=== PATIENT | male | born 1990 | race Caucasian/White ===

== ENCOUNTER 2019-03-17 06:36 | Emergency (ER) | payer OTHER, SELFPAY ==
[2019-03-17] MEDS ORDERED: NA CHLORIDE 0.9% 1,000 ML ONE (07:15)
[2019-03-17] MEDS ORDERED: KETOROLAC 30 MG/ML INJ ONE (07:15)
[2019-03-17] MEDS ORDERED: ONDANSETRON 4 MG/2 ML VIAL ONE ×2 (07:15→08:08)
[2019-03-17 07:32] LABS: Absolute Lymphocytes (CBC) 1.6 K/uL (0.7-4.9); Absolute Monocytes 0.5 K/uL (0.1-1.3); Absolute Neutrophil 8.9 K/uL (1.8-8.0); Basophils % 0.4 % (0-1.3); Eosinophils % 1.1 % (0-4.4); Hematocrit 42.1 % (39.6-49.0); Lymphocytes % 14.3 % (15.3-44.8); Monocytes % 4.4 % (3.3-12.3); RBC Red Blood Cell Count 4.54 M/uL (4.33-5.43)
[2019-03-17 07:50] LABS: ALT/SGPT 27 U/L (12-78); AST/SGOT 20 U/L (15-37); Albumin 4.4 g/dL (3.4-5.0); Alkaline Phosphatase 51 U/L (45-117); BUN Blood Urea Nitrogen 9 mg/dL (7-18); Bicarbonate 25 mmol/L (21-32); Bilirubin Direct 0.1 mg/dL (0-0.2); Bilirubin Total 0.5 mg/dL (0.2-1.0); Glucose Level 130 mg/dL (74-106); Lipase 235 U/L (73-393); Potassium 3.7 mmol/L (3.5-5.1); Protein, Total 7.5 g/dL (6.4-8.2); Sodium Level 144 mmol/L (136-145)
[2019-03-17] MEDS ORDERED: MORPHINE 2 MG/ML SYR ONE ×2 (08:08→10:57)
[2019-03-17 08:37] LABS: Calcium Oxalate Crystals- Ur MODERATE (NONE SEEN); Urine Bacteria NONE SEEN /HPF (NONE SEEN); Urine Culture Reflex Order NOT NEEDED; Urine Mucus LIGHT /HPF (NONE SEEN); Urine RBC >50 /HPF (NONE SEEN)
--- NOTE | 2019-03-17 10:49 | RAD REPORT ---
EXAM DESCRIPTION: CT - Abdomen Pelvis W Contrast - 03/17/2019 10:25 am CLINICAL HISTORY: Abdominal pain. Vomiting are COMPARISON: 2010 TECHNIQUE: Computed axial tomography of the abdomen and pelvis was obtained. 100 cc Isovue-300 is ad ministered intravenously. Oral contrast was given. All CT scans are performed using dose optimization technique as appropriate and may include automated exposure control or mA/KV adjustment according to patient size. FINDINGS: The liver, spleen, pancreas, adrenals and left kidney appear unremarkable. Right renal calculi. The l argest measures 10 millimeters Hounsfield unit 978. No hydronephrosis The appendix is not clearly seen. There is no evidence of diverticulitis IMPRESSION: Nonobstructing right renal calculi
[2019-03-17 11:11] LABS: Urine Blood 2+ (NEG); Urine Glucose NEGATIVE (NEG); Urine Protein TRACE (NEG); Urine Specific Gravity 1.015 (1.005-1.030); Urine pH 8.5 (5.0-7.0)
[2019-03-17] MEDS ORDERED: DICYCLOMINE HCL 10 MG CAP ONE (11:38)
--- NOTE | 2019-03-17 12:05 | EDPHYS ---
Physician Documentation [facility] Name: Lucas Macario Age: 28 yrs Sex: Male : 1990 Arrival Date: 03/17/2019 Time: 06:39 Bed 17 Private MD: ED Physician Gerry Hernandez HPI: 03/17 06:53 This 28 yrs old Male presents to ER via Ambulatory with complaints of cp Abdominal Pain, Vomiting. 06:53 The patient presents with abdominal pain mid abdomen. cp 06:53 Onset: The symptoms/episode began/occurred yesterday. The symptoms do not radiate. cp Associated signs and symptoms: Pertinent positives: nausea and vomiting, diarrhea yesterday, Pertinent negatives: blood in stools, constipation, dysuria, fever, shortness of breath, testicular pain. The symptoms are described as constant. Modifying factors: the symptoms are aggravated by pressure. Severity of pain: in the emergency department the pain is actually worse. Historical: - Allergies: 06:52 No Known Allergies; bb - Home Meds: 06:52 None [Active]; bb - PMHx: 06:52 Kidney stones; bb - PSHx: 06:52 right hand; bb - Immunization history:: Adult Immunizations up to date. - Social history:: Smoking status: Patient uses tobacco products, smokes one pack cigarettes per day. Patient/guardian denies using alcohol, street drugs. - Ebola Screening: : No symptoms or risks identified at this time. ROS: 06:54 Eyes: Negative for injury, pain, redness, and discharge. cp 06:54 Constitutional: Negative for body aches, chills, fever, poor PO intake. 06:54 ENT: Negative for drainage from ear(s), ear pain, sore throat, difficulty swallowing, difficulty handling secretions. 06:54 Cardiovascular: Negative for chest pain. 06:54 Respiratory: Negative for cough, shortness of breath, wheezing. 06:54 Abdomen/GI: Positive for abdominal pain, nausea and vomiting, diarrhea, Negative for constipation, black/tarry stool, rectal bleeding. 06:54 : Negative for urinary symptoms, testicular pain 06:54 Neuro: Negative for altered mental status, headache. 06:54 All other systems are negative. Exam: 07:00 Constitutional: The patient appears in no acute distress, alert, awake, non-toxic, well cp developed, well nourished. 07:00 Head/Face: Normocephalic, atraumatic. cp 07:00 Eyes: Periorbital structures: appear normal, Conjunctiva: normal, no exudate, no injection, Sclera: no appreciated abnormality, Lids and lashes: appear normal, bilaterally. 07:00 ENT: External ear(s): are unremarkable, Nose: is normal, Mouth: Lips: moist, Oral mucosa: pink and intact, moist, Posterior pharynx: is normal, airway is patent, no erythema, no exudate. 07:00 Chest/axilla: Inspection: normal, Palpation: is normal, no crepitus, no tenderness. 07:00 Cardiovascular: Rate: bradycardic, Rhythm: regular. 07:00 Respiratory: the patient does not display signs of respiratory distress, Respirations: normal, no use of accessory muscles, no retractions, no splinting, no tachypnea, labored breathing, is not present, Breath sounds: are clear throughout, no decreased breath sounds, no stridor, no wheezing. 07:00 Abdomen/GI: Inspection: abdomen appears normal, Bowel sounds: active, all quadrants, Palpation: soft, in all quadrants, moderate abdominal tenderness, in the right lower quadrant, rebound tenderness, is not appreciated, involuntary guarding, is not appreciated. 07:00 Back: pain, is absent, ROM is normal. 07:00 Skin: no rash present. Vital Signs: 06:52 BP 125 / 80; Pulse 58; Resp 16 S; Temp 98.1(O); Pulse Ox 100% on R/A; Weight 58.97 kg bb (R); Height 5 ft. 8 in. (172.72 cm) (R); Pain 6/10; 07:31 BP 128 / 81; Pulse 52; Resp 18; Pulse Ox 100% on R/A; em 08:27 BP 124 / 82; Pulse 51; Resp 18; Pulse Ox 97% on R/A; Pain 2/10; em 09:30 BP 117 / 75; Pulse 53; Resp 18; Pulse Ox 99% on R/A; Pain 4/10; em 10:30 BP 124 / 86; Pulse 63; Resp 18; Pulse Ox 99% on R/A; Pain 5/10; em 11:30 BP 122 / 87; Pulse 49; Resp 16; Pulse Ox 99% on R/A; em 06:52 Body Mass Index 19.77 (58.97 kg, 172.72 cm) bb MDM: 06:45 Patient medically screened. cp 07:00 Differential diagnosis: appendicitis, bowel obstruction, Testicular Torsion, cp Ureterolithiasis, urinary tract infection. 11:46 Physician consultation: Sylvain Hull MD was called at 11:46, awaiting call back. cp 12:03 Data reviewed: vital signs, nurses notes, lab test result(s), radiologic studies, CT cp scan. 12:03 Response to treatment: the patient's symptoms have markedly improved after treatment, cp and as a result, I will discharge patient. Physician consultation: Sylvain Hull MD was contacted at 12:00, regarding patient's condition, outpatient follow-up, tomorrow, wants patient to f/u with urology for hematuria. 03/17 06:54 Order name: Basic Metabolic Panel; Complete Time: 09:04 cp 03/17 09:05 Interpretation: Normal except: CL 108; GLUC 130. cp 03/17 06:54 Order name: CBC with Diff; Complete Time: 07:50 cp 03/17 09:05 Interpretation: Normal except: WBC 11.1; MPV 7.0; GERMÁN% 79.8; LYM% 14.3; NEUT A 8.9. cp 03/17 06:54 Order name: Creatinine for Radiology; Complete Time: 07:50 cp 03/17 06:54 Order name: Hepatic Function; Complete Time: 09:04 cp 03/17 06:54 Order name: Lipase; Complete Time: 09:04 cp 03/17 06:54 Order name: Urine Microscopic Only; Complete Time: 09:04 cp 03/17 07:24 Order name: CT Abd/Pelvis - W/Contrast: give po contrast; Complete Time: 10:51 cp 03/17 10:41 Order name: Urine Dipstick--Ancillary (enter results); Complete Time: 11:18 mw2 03/17 06:54 Order name: IV Saline Lock; Complete Time: 07:54 cp 03/17 06:54 Order name: Labs collected and sent; Complete Time: 07:54 cp 03/17 06:54 Order name: Urine Dipstick-Ancillary (obtain specimen); Complete Time: 08:29 cp 03/17 11:23 Order name: PO challenge; Complete Time: 11:34 cp Administered Medications: 07:19 Drug: NS 0.9% 1000 ml Route: IV; Rate: 1 bolus; Site: right forearm; hb 08:26 Follow up: IV Status: Completed infusion; IV Intake: 1000ml em 07:20 Drug: Zofran 4 mg Route: IVP; Site: right forearm; hb 07:53 Follow up: Response: No adverse reaction; Nausea unchanged em 07:20 Drug: TORadol - Ketorolac 15 mg Route: IVP; Site: right forearm; hb 07:54 Follow up: Response: No adverse reaction; Pain is unchanged, physician notified em 08:01 Drug: Zofran 4 mg Route: IVP; Site: right forearm; em 08:27 Follow up: Response: No adverse reaction; Nausea is decreased em 08:09 Drug: morphine 2 mg Route: IVP; Site: right forearm; hb 08:27 Follow up: Response: No adverse reaction; Pain is decreased em 10:52 Drug: morphine 2 mg Route: IVP; Site: right forearm; em 11:24 Follow up: Response: No adverse reaction em 11:34 Drug: Bentyl 20 mg Route: PO; em 12:17 Follow up: Response: No adverse reaction em Disposition: 03/18 08:02 Co-signature as Attending Physician, Gerry Hernandez MD I agree with the assessment and sujey plan of care. Disposition: 03/17/19 12:04 Discharged to Home. Impression: Hematuria, Diarrhea, unspecified, Nausea and vomiting, Lower abdominal pain, unspecified, Calculus of kidney - right. - Condition is Stable. - Discharge Instructions: Abdominal Pain, Adult, Diarrhea, Adult, Hematuria, Adult, Nausea and Vomiting, Adult. - Prescriptions for Bentyl 20 mg Oral Tablet - take 1 tablet by ORAL route every 6 hours As needed; 20 tablet. Zofran 4 mg Oral Tablet - take 1 tablet by ORAL route every 12 hours As needed; 20 tablet. Cipro 500 mg Oral Tablet - take 1 tablet by ORAL route every 12 hours for 7 days; 14 tablet. Metronidazole 500 mg Oral Tablet - take 1 tablet by ORAL route every 8 hours for 7 days; 21 tablet. - Medication Reconciliation Form, Thank You Letter, Antibiotic Education, Prescription Opioid Use form. - Follow up: Sylvain Hull MD; When: Tomorrow; Reason: Recheck today's complaints. Follow up: Krysta Garcia MD; When: 1 - 2 days; Reason: hematuria. - Problem is new. - Symptoms have improved. Signatures: Dispatcher [employer] Gerry Nails MD MD cha Munoz, Edgar, DYER HELPER DYER HELPER em Hali Mckenna RN RN bb Gerry Carroll, PA PA Jamila Galvan RN RN Corrections: (The following items were deleted from the chart) 03/17 12:06 12:04 03/17/2019 12:04 Discharged to Home. Impression: Hematuria; Diarrhea, cp unspecified; Nausea and vomiting; Lower abdominal pain, unspecified. Condition is Stable. Forms are Medication Reconciliation Form, Thank You Letter, Antibiotic Education, Prescription Opioid Use. Follow up: Dr. Sylvain Hull; When: Tomorrow; Reason: Recheck today's complaints. Follow up: Krysta Garcia; When: 1 - 2 days; Reason: hematuria. Problem is new. Symptoms have improved. cp 12:19 12:06 03/17/2019 12:04 Discharged to Home. Impression: Hematuria; Diarrhea, em unspecified; Nausea and vomiting; Lower abdominal pain, unspecified; Calculus of kidney - right. Condition is Stable. Discharge Instructions: Abdominal Pain, Adult, Diarrhea, Adult, Hematuria, Adult, Nausea and Vomiting, Adult. Prescriptions for Bentyl 20 mg Oral Tablet - take 1 tablet by ORAL route every 6 hours As needed; 20 tablet, Zofran 4 mg Oral Tablet - take 1 tablet by ORAL route every 12 hours As needed; 20 tablet, Cipro 500 mg Oral Tablet - take 1 tablet by ORAL route every 12 hours for 7 days; 14 tablet, Metronidazole 500 mg Oral Tablet - take 1 tablet by ORAL route every 8 hours for 7 days; 21 tablet. and Forms are Medication Reconciliation Form, Thank You Letter, Antibiotic Education, Prescription Opioid Use. Follow up: Dr. Sylvain Hull; When: Tomorrow; Reason: Recheck today's complaints. Follow up: Krysta Garcia; When: 1 - 2 days; Reason: hematuria. Problem is new. Symptoms have improved. cp
--- NOTE | 2019-03-17 12:05 | ER ---
Nurse's Notes [facility] Name: Lucas Macario Age: 28 yrs Sex: Male : 1990 Arrival Date: 03/17/2019 Time: 06:39 Bed 17 Private MD: Diagnosis: Hematuria;Diarrhea, unspecified;Nausea and vomiting;Lower abdominal pain, unspecified;Calculus of kidney-right Presentation: 03/17 06:51 Presenting complaint: Patient states: he has had nausea, vomiting, diarrhea with bb abdominal pain since yesterday. Transition of care: patient was not received from another setting of care. Onset of symptoms was March 16, 2019. Risk Assessment: Do you want to hurt yourself or someone else? Patient reports no desire to harm self or others. Initial Sepsis Screen: Does the patient meet any 2 criteria? No. Patient's initial sepsis screen is negative. Does the patient have a suspected source of infection? No. Patient's initial sepsis screen is negative. Care prior to arrival: None. 06:51 Method Of Arrival: Ambulatory bb 06:51 Acuity: AAKASH 3 bb Historical: - Allergies: 06:52 No Known Allergies; bb - Home Meds: 06:52 None [Active]; bb - PMHx: 06:52 Kidney stones; bb - PSHx: 06:52 right hand; bb - Immunization history:: Adult Immunizations up to date. - Social history:: Smoking status: Patient uses tobacco products, smokes one pack cigarettes per day. Patient/guardian denies using alcohol, street drugs. - Ebola Screening: : No symptoms or risks identified at this time. Screenin:10 Abuse screen: Denies threats or abuse. Nutritional screening: No deficits noted. em Tuberculosis screening: No symptoms or risk factors identified. Fall Risk None identified. Assessment: 07:10 General: Appears in no apparent distress. comfortable, Behavior is calm, cooperative, em Reports chills for 1-2 days, Denies fever. Pain: Complains of pain in suprapubic area Pain currently is 6 out of 10 on a pain scale. at worst was 10 out of 10 on a pain scale. Quality of pain is described as burning. Neuro: Level of Consciousness is awake, alert, obeys commands, Oriented to person, place, time, situation. Cardiovascular: Capillary refill < 3 seconds Patient's skin is warm and dry. Respiratory: Airway is patent Respiratory effort is even, unlabored, Respiratory pattern is regular, symmetrical. GI: Abdomen is flat, Bowel sounds present X 4 quads. Abd is soft X 4 quads Abdomen is tender to palpation in right lower quadrant and left lower quadrant Reports nausea, vomiting. : Denies burning with urination. Derm: Skin is intact, is healthy with good turgor, Skin is pink, warm \T\ dry. Musculoskeletal: Capillary refill < 3 seconds, Range of motion: intact in all extremities. 07:25 Reassessment: I agree with previous assessment. hb 08:26 Reassessment: Patient appears in no apparent distress at this time. Patient and/or em family updated on plan of care and expected duration. Pain level reassessed. Patient is alert, oriented x 3, equal unlabored respirations, skin warm/dry/pink. Patient states feeling better. 09:30 Reassessment: Patient appears in no apparent distress at this time. Patient and/or em family updated on plan of care and expected duration. Pain level reassessed. Patient is alert, oriented x 3, equal unlabored respirations, skin warm/dry/pink. rates pain 4/10, pending CT Patient states feeling better. Patient states symptoms have improved. 11:03 Reassessment: Patient appears in no apparent distress at this time. Patient and/or em family updated on plan of care and expected duration. Pain level reassessed. Patient is alert, oriented x 3, equal unlabored respirations, skin warm/dry/pink. Patient states feeling better. Patient states symptoms have improved. 11:34 Reassessment: given water with PO medications. em Vital Signs: 06:52 BP 125 / 80; Pulse 58; Resp 16 S; Temp 98.1(O); Pulse Ox 100% on R/A; Weight 58.97 kg bb (R); Height 5 ft. 8 in. (172.72 cm) (R); Pain 6/10; 07:31 BP 128 / 81; Pulse 52; Resp 18; Pulse Ox 100% on R/A; em 08:27 BP 124 / 82; Pulse 51; Resp 18; Pulse Ox 97% on R/A; Pain 2/10; em 09:30 BP 117 / 75; Pulse 53; Resp 18; Pulse Ox 99% on R/A; Pain 4/10; em 10:30 BP 124 / 86; Pulse 63; Resp 18; Pulse Ox 99% on R/A; Pain 5/10; em 11:30 BP 122 / 87; Pulse 49; Resp 16; Pulse Ox 99% on R/A; em 06:52 Body Mass Index 19.77 (58.97 kg, 172.72 cm) bb ED Course: 06:39 Patient arrived in ED. es 06:45 Gerry Carroll PA is PHCP. cp 06:45 Parish Starks MD is Attending Physician. cp 06:52 Triage completed. bb 06:52 Arm band placed on Patient placed in an exam room, on a stretcher, on pulse oximetry. bb Family accompanied patient. 07:09 Gerry Hernandez MD is Attending Physician. cp 07:10 Patient has correct armband on for positive identification. Bed in low position. Call em light in reach. Side rails up X2. Adult w/ patient. Pulse ox on. NIBP on. 07:10 Initial lab(s) drawn, by me, sent to lab. Inserted saline lock: 20 gauge in right em forearm, using aseptic technique. Blood collected. 07:26 Ernesto Parks LVN is Primary Nurse. em 10:00 CT Abd/Pelvis - W/Contrast: give po contrast In Process Unspecified. EDMS 10:01 CT completed. Patient tolerated procedure well. Patient moved to CT via stretcher. Patient moved back from [place]. 12:02 Sylvain Hull MD is Referral Physician. cp 12:03 Krysta Garcia MD is Referral Physician. cp 12:15 No provider procedures requiring assistance completed. IV discontinued, intact, em bleeding controlled, No redness/swelling at site. Pressure dressing applied. Administered Medications: 07:19 Drug: NS 0.9% 1000 ml Route: IV; Rate: 1 bolus; Site: right forearm; hb 08:26 Follow up: IV Status: Completed infusion; IV Intake: 1000ml em 07:20 Drug: Zofran 4 mg Route: IVP; Site: right forearm; hb 07:53 Follow up: Response: No adverse reaction; Nausea unchanged em 07:20 Drug: TORadol - Ketorolac 15 mg Route: IVP; Site: right forearm; hb 07:54 Follow up: Response: No adverse reaction; Pain is unchanged, physician notified em 08:01 Drug: Zofran 4 mg Route: IVP; Site: right forearm; em 08:27 Follow up: Response: No adverse reaction; Nausea is decreased em 08:09 Drug: morphine 2 mg Route: IVP; Site: right forearm; hb 08:27 Follow up: Response: No adverse reaction; Pain is decreased em 10:52 Drug: morphine 2 mg Route: IVP; Site: right forearm; em 11:24 Follow up: Response: No adverse reaction em 11:34 Drug: Bentyl 20 mg Route: PO; em 12:17 Follow up: Response: No adverse reaction em Intake: 08:26 IV: 1000ml; Total: 1000ml. em Outcome: 12:04 Discharge ordered by MD. cp 12:15 Discharged to home ambulatory, with family. em 12:15 Condition: good 12:15 Discharge instructions given to patient, family, Instructed on discharge instructions, follow up and referral plans. medication usage, Demonstrated understanding of instructions, follow-up care, medications, Prescriptions given X 4. 12:19 Patient left the ED. em Signatures: Dispatcher [employer] Zita Ortiz Ervin eh Munoz, Edgar, ROAD CLEANER ROAD CLEANER em Hali Mckenna, RN RN Gerry Taylor PA PA cp Baxter, Heather, RN RN hb
== END 2019-03-17 12:19 | disposition home or self-care (01) ==
LOC: ER 06:36
DX: N20.0 Calculus of kidney (principal); F17.210 Nicotine dependence, cigarettes, uncomplicated
CPT/HCPCS: 36415; 74177; 80048; 80076; 81003; 81015; 83690; 85025; 96361; 96374; 96375; 99284; J2270; J2405; J7030; Q9967

== ENCOUNTER 2020-04-10 10:51 | Emergency (ER) | payer SELFPAY ==
[2020-04-10] MEDS ORDERED: BUPIVACAINE 0.5% PF 10 ML VIAL ONE (11:56)
[2020-04-10] MEDS ORDERED: LIDOCAINE 1% MPF 5 ML VIAL ONE (11:56)
--- NOTE | 2020-04-10 11:57 | RAD REPORT ---
EXAM DESCRIPTION: RAD - Hand Right 3 View - 04/10/2020 11:31 am CLINICAL HISTORY: laceration, rule out FB COMPARISON: No comparisonsdelete select FINDINGS: No fracture is identified. There is no dislocation or periosteal reaction noted. Bandagin g limits detail. No foreign body identifiable. IMPRESSION: The bandaging in place is limiting but no foreign body is identifiable. No acute bone or joint finding.
--- NOTE | 2020-04-10 12:36 | EDPHYS ---
Physician Documentation [facility] Name: Lucas Macario Age: 30 yrs Sex: Male : 1990 Arrival Date: 04/10/2020 Time: 10:54 Bed 5 Private MD: ED Physician Noris Polanco HPI: 04/10 12:06 This 30 yrs old Male presents to ER via Ambulatory with complaints of jmm Laceration To Hand. 12:06 The patient or guardian reports injury, pain. Onset: The symptoms/episode jmm began/occurred acutely, just prior to arrival. Modifying factors: The symptoms are alleviated by nothing, the symptoms are aggravated by nothing. This is a 30 year old male with no chronic medical conditions that presents to the ED with complaints of right 4th finger laceration which occurred after a dish broke while he was washing it. Denies other known injury. Patient is UTD on immunizations. . Historical: - Allergies: 11:06 No Known Allergies; ss - Home Meds: 11:06 None [Active]; ss - PMHx: 11:06 Kidney stones; ss - PSHx: 11:06 right hand; ss - Immunization history:: Adult Immunizations up to date, Last tetanus immunization: up to date. - Social history:: Smoking status: Patient denies any tobacco usage or history of. ROS: 12:06 Constitutional: Negative for fever, chills, and weight loss, Cardiovascular: Negative jmm for chest pain, palpitations, and edema, Respiratory: Negative for shortness of breath, cough, wheezing, and pleuritic chest pain. 12:06 MS/extremity: Positive for injury or acute deformity, laceration. 12:06 All other systems are negative. Exam: 12:06 Constitutional: This is a well developed, well nourished patient who is awake, alert, jmm and in no acute distress. Head/Face: atraumatic. Eyes: EOMI, no conjunctival erythema appreciated ENT: Moist Mucus Membranes Neck: Trachea midline, Supple Chest/axilla: Normal chest wall appearance and motion. Cardiovascular: Regular rate and rhythm. No edema appreciated Respiratory: Normal respirations, no respiratory distress appreciated Abdomen/GI: Non distended, soft Back: Normal ROM 12:06 Musculoskeletal/extremity: laceration noted to the base of the right 4th finger along the ulnar side, < 2 sec dist cap refill, compartments are soft, NVI. 12:06 Skin: laceration noted to the base of the eft 4th finger. 12:06 Neuro: Orientation: is normal, Mentation: is normal, Memory: is normal. 12:06 Psych: Behavior/mood is pleasant, cooperative. Vital Signs: 11:00 BP 118 / 80; Pulse 87; Resp 16; Temp 97.8(TE); Pulse Ox 100% on R/A; Weight 63.5 kg; ss Height 5 ft. 7 in. (170.18 cm); Pain 0/10; 11:00 Body Mass Index 21.93 (63.50 kg, 170.18 cm) ss Laceration: 12:33 Wound Repair of 3.5cm ( 1.4in ) subcutaneous laceration to palmar aspect of proximal jmm phalanx of right ring finger. Distal neuro/vascular/tendon intact. Anesthesia: Local anesthetic administered with 4 mls of Lido/Marcaine. Wound prep: Simple cleansing, Moderate cleansing with betadine by me, Wound irrigation with saline by me. Skin closed with 7 5-0 Prolene using simple sutures and sterile technique. Patient tolerated well. MDM: 10:56 Patient medically screened. ma2 12:33 Data reviewed: vital signs, nurses notes. Counseling: I had a detailed discussion with mario the patient and/or guardian regarding: the historical points, exam findings, and any diagnostic results supporting the discharge/admit diagnosis, radiology results, the need for outpatient follow up, to return to the emergency department if symptoms worsen or persist or if there are any questions or concerns that arise at home. ED course: FROM against resistance, I do not currently suspect tendon injury. Patient is given strict return precautions. Patient understood and agrees with the plan of care. . 04/10 11:18 Order name: Hand Right 3 View XRAY; Complete Time: 12:04 mario Administered Medications: No medications were administered Disposition: 18:17 Co-signature as Attending Physician, Noris Polanco MD. ma2 Disposition: 04/10/20 12:35 Discharged to Home. Impression: Finger Laceration. - Condition is Stable. - Discharge Instructions: Laceration Care, Adult. - Medication Reconciliation Form, Thank You Letter, Antibiotic Education, Prescription Opioid Use form. - Follow up: Private Physician; When: 5 - 6 days; Reason: Recheck today's complaints, Continuance of care, Staple/Suture removal, Re-evaluation by your physician. Signatures: Dispatcher [employer] EDArmando Cardenas PA PA jmm Smirch, Shelby RN RN ss Gilma Mendes RN RN [id number] Noris Polanco MD MD ma2 Corrections: (The following items were deleted from the chart) 12:49 12:35 04/10/2020 12:35 Discharged to Home. Impression: Finger Laceration. Condition is ss Stable. Forms are Medication Reconciliation Form, Thank You Letter, Antibiotic Education, Prescription Opioid Use. Follow up: Private Physician; When: 5 - 6 days; Reason: Recheck today's complaints, Continuance of care, Staple/Suture removal, Re-evaluation by your physician. mario
--- NOTE | 2020-04-10 12:36 | ER ---
Nurse's Notes [facility] Name: Lucas Macario Age: 30 yrs Sex: Male : 1990 Arrival Date: 04/10/2020 Time: 10:54 Bed 5 Private MD: Diagnosis: Finger Laceration Presentation: 04/10 11:00 Chief complaint: Patient states: Laceration between 4th and 5th fingers sustained just ss prior to arrival by a broken dish. Bleeding controlled with pressure. Coronavirus screen: Proceed with normal triage. Patient denies a cough. Patient denies shortness of breath or difficulty breathing. Patient denies measured and/or subjective temperature greater than 100.4F prior to today's visit. Patient denies travel on a cruise ship or to a country the [facility] currently lists as an affected area. Patient denies contact with known and/or suspected case of COVID-19. Ebola Screen: Patient denies exposure to infectious person. Patient denies travel to an Ebola-affected area in the 21 days before illness onset. Complicating Factors: There are no complicating factors for this patient. Initial Sepsis Screen: Does the patient meet any 2 criteria? No. Patient's initial sepsis screen is negative. Does the patient have a suspected source of infection? No. Patient's initial sepsis screen is negative. Risk Assessment: Do you want to hurt yourself or someone else? Patient reports no desire to harm self or others. Onset of symptoms was April 10, 2020. 11:00 Method Of Arrival: Ambulatory ss 11:00 Acuity: AAKASH 4 ss Triage Assessment: 11:00 General: Appears in no apparent distress. uncomfortable, Behavior is calm, cooperative, jl7 appropriate for age. Pain: Denies pain. Neuro: Level of Consciousness is awake, alert, obeys commands, Oriented to person, place, time, situation. Cardiovascular: Patient's skin is warm and dry. Respiratory: Airway is patent Respiratory effort is even, unlabored, Respiratory pattern is regular, symmetrical. Derm: Skin is pink, warm \T\ dry. Injury Description: Laceration sustained to palmar aspect of proximal phalanx of right ring finger is contaminated, jagged, 2.6 to 7.5 cm long, bleeding moderately, was sustained less than 30 minutes ago. is bleeding moderately. Historical: - Allergies: 11:06 No Known Allergies; ss - Home Meds: 11:06 None [Active]; ss - PMHx: 11:06 Kidney stones; ss - PSHx: 11:06 right hand; ss - Immunization history:: Adult Immunizations up to date, Last tetanus immunization: up to date. - Social history:: Smoking status: Patient denies any tobacco usage or history of. Screenin:15 Abuse screen: Denies threats or abuse. Denies injuries from another. Nutritional jl7 screening: No deficits noted. Tuberculosis screening: No symptoms or risk factors identified. Fall Risk None identified. Assessment: 11:05 Reassessment: Pressure dressing applied to laceration. jl7 Vital Signs: 11:00 BP 118 / 80; Pulse 87; Resp 16; Temp 97.8(TE); Pulse Ox 100% on R/A; Weight 63.5 kg; ss Height 5 ft. 7 in. (170.18 cm); Pain 0/10; 11:00 Body Mass Index 21.93 (63.50 kg, 170.18 cm) ED Course: 10:54 Patient arrived in ED. bp1 10:56 Noris Polanco MD is Attending Physician. ma2 10:56 Armando Lima PA is PHCP. jmm 10:56 Noris Polanco MD is Attending Physician. jmm 10:57 Noris Polanco MD is Attending Physician. jmm 10:57 Gilma Mendes, KATHI is Primary Nurse. jl7 11:05 Triage completed. ss 11:06 Arm band placed on right wrist. ss 11:15 Patient has correct armband on for positive identification. Bed in low position. Call jl7 light in reach. Side rails up X 1. Pulse ox on. NIBP on. 11:31 Hand Right 3 View XRAY In Process Unspecified. EDMS 12:48 No provider procedures requiring assistance completed. Patient did not have IV access ss during this emergency room visit. 12:48 Dressings: Kerlix X 1; palmar aspect of proximal phalanx of right ring finger ss non-adherent dressing. Administered Medications: No medications were administered Outcome: 12:35 Discharge ordered by . jmm 12:48 Discharged to home ambulatory. ss 12:48 Condition: good 12:48 Discharge instructions given to patient, Instructed on discharge instructions, follow up and referral plans. wound care, Demonstrated understanding of instructions, follow-up care, wound care. 12:49 Patient left the ED. ss Signatures: Dispatcher [employer] Armando Powers PA PA jmm Smirch, Shelby, RN RN ss Gilma Mendes RN RN jl7 Noris Polanco MD MD ma2 Alie Soni [facility]
[2020-04-10 12:55] VITALS: BP 118/80; TEMP 97.8; O2SAT 100
== END 2020-04-10 12:49 | disposition home or self-care (01) ==
LOC: ER 10:51
PROC: 0JQJ0ZZ Repair Right Hand Subcutaneous Tissue and Fascia, Open Approach (ICD-10-PCS; principal; 2020-04-10)
DX: S61.214A Laceration without foreign body of right ring finger without damage to nail, initial encounter (principal); W45.8XXA Other foreign body or object entering through skin, initial encounter; Y93.G1 Activity, food preparation and clean up; Y92.9 Unspecified place or not applicable
CPT/HCPCS: 99283